=== PATIENT | male | born 1965 | race Caucasian/White ===

== ENCOUNTER 2023-01-31 07:52 | Emergency (ER) | payer OTHER, SELFPAY ==
[2023-01-31 07:57] VITALS: BP 130/70; BP 161/101; PULSE 90; PULSE 95; RESP 18; TEMP 36.6; O2SAT 97; O2SAT 99; BMI 26.6
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
--- NOTE | 2023-01-31 08:59 | MHC.CM.PN ---
Addendum entered by Deborah Aguilera RN 01/31/23 09:42: MD CONFIRMED NO CM INTERVENTION NEEDED AT THIS TIME Original Note: CASE MANAGEMENT CONSULT RECEIVED. T/W REACHED OUT TO MD AND WAITING RESPONSE. CM TO FOLLOW UP IN THIS NOTE
[2023-01-31 10:40] LABS: Appearance Urine Clear; Color Urine Yellow; Glucose Urine UA Negative (Negative); Leukocyte Esterase Urine Negative (Negative); Nitrite Urine Negative (Negative); PH 5.5 (5.0-9.0); UMIC TRIGGER UACC YES; Urine Blood Negative (Negative); Urine Ketones Negative (Negative); Urine Protein 30 (1+) mg/dL (Neg-Trace)
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
[2023-01-31 10:46] LABS: Bacteria Urine None Seen (None Seen); Hyaline Casts Urine 0-2 /LPF (0-2); RBC Urine 0-2 /HPF (0-2); Squamous Epithelial Cell Urine 0-2 /HPF (0-2); WBC Urine 0-5 /HPF (0-5)
[2023-01-31 10:49] LABS: Amphetamine Screen Urine Not Detected (Not Detect); Barbiturates, Urine Not Detected (Not Detect); Benzodiazepines Screen Urine Not Detected (Not Detect); Cannabinoid Screen Urine Not Detected (Not Detect); Cocaine Screen Urine POSITIVE (Not Detect); Fentanyl, urine POSITIVE (Not Detect); Opiate Screen Urine Not Detected (Not Detect); Phencyclidine Screen Urine Not Detected (Not Detect)
[2023-01-31 10:51] VITALS: BP 138/90; PULSE 54; RESP 14; O2SAT 96
[2023-01-31] MEDS: Naloxone HCl Nasal TAKE HOME 4 MG SPRAY NOSTRILALT (10:55)
== END 2023-01-31 10:55 | disposition home or self-care (01) ==
PROVIDERS: Emergency Provider Emergency Medicine
DX: R11.2 Nausea with vomiting, unspecified (principal); T50.901A Poisoning by unspecified drugs, medicaments and biological substances, accidental (unintentional), initial encounter; Y92.410 Unspecified street and highway as the place of occurrence of the external cause
CPT/HCPCS: 80307; 81001; 99284